=== PATIENT | male | born 1965 | race Caucasian/White ===

== ENCOUNTER → 2016-09-23 | Outpatient (CLI) | payer MEDICARE, BC ==
[2016-09-23 09:59] LABS: Basophils # (A) 0.1 k/uL (0-0.2); Basophils % (A) 1 %; CH 34.4; CHCM 34.3; Eosinophils # (A) 0.2 k/uL (0-0.7); Eosinophils % (A) 3 %; HCT 47.7 % (39.0-53.0); HDW 2.58; HGB 15.8 gm/dL (13.0-17.5); Luc # (Auto) 0.18; Luc % (Auto) 2; Lymphocytes # (A) 3.2 k/uL (1.0-4.8); Lymphocytes % (A) 40 %; MCH 33.2 pg (25.0-35.0); MCHC 33.1 g/dL (31.0-37.0); MCV 100.5 fL (80.0-100.0); Mean Platelet Volume 7.5; Monocytes # (A) 0.4 k/uL (0-1.0); Monocytes % (A) 5 %; Neutrophils # (A) 3.8 k/uL (1.3-7.7); Neutrophils % (A) 48 %; RBC 4.74 m/uL (4.30-5.90); RDW 12.8 % (11.5-15.5); WBC 7.9 k/uL (3.8-10.6); WBC (Perox) 7.93
[2016-09-23 10:00] LABS: AST 44 U/L (17-59); Blood Urea Nitrogen 14 mg/dL (9-20); Chloride 104 mmol/L (98-107); Non-African American GFR(MDRD) >60 (>60 ml/min/1.73 sqM); Total Bilirubin 0.5 mg/dL (0.2-1.3)
[2016-09-23 10:34] LABS: ALT 85 U/L (21-72); Alkaline Phosphatase 76 U/L (38-126); Anion Gap 12 mmol/L; Calcium 9.7 mg/dL (8.4-10.2); Carbon Dioxide 25 mmol/L (22-30); Cholesterol 222 mg/dL (<200); Glucose 109 mg/dL (74-99); Sodium 141 mmol/L (137-145)
[2016-09-24 14:58] LABS: LOG HIV Copies/mL <1.60 (<1.60)
== END | disposition home or self-care (01) ==
LOC: LABWHC1 09:15
PROVIDERS: ATTEND Internal Medicine Infectious Disease
DX: B20 Human immunodeficiency virus [HIV] disease (principal)
CPT/HCPCS: 36415; 80053; 82465; 85025; 86360; 87536

== ENCOUNTER → 2017-01-01 | Outpatient (CLI) | payer MEDICARE, BC ==
[2017-01-01 07:57] LABS: CH 35.2; CHCM 34.8; HCT 48.3 % (39.0-53.0); HGB 16.8 gm/dL (13.0-17.5); MCH 35.4 pg (25.0-35.0); MCHC 34.8 g/dL (31.0-37.0); MCV 101.5 fL (80.0-100.0); Macrocytosis Slight; Mean Platelet Volume 6.6; RBC 4.75 m/uL (4.30-5.90); RDW 12.6 % (11.5-15.5); WBC 8.6 k/uL (3.8-10.6)
[2017-01-01 08:08] LABS: ALT 101 U/L (21-72); AST 65 U/L (17-59); Alkaline Phosphatase 63 U/L (38-126); Anion Gap 10 mmol/L; Blood Urea Nitrogen 19 mg/dL (9-20); Calcium 9.1 mg/dL (8.4-10.2); Carbon Dioxide 25 mmol/L (22-30); Chloride 107 mmol/L (98-107); Cholesterol 245 mg/dL (<200); Glucose 114 mg/dL (74-99); HDL Cholesterol 36 mg/dL (40-60); Non-African American GFR(MDRD) >60 (>60 ml/min/1.73 sqM); Potassium 5.3 mmol/L (3.5-5.1); Sodium 142 mmol/L (137-145); Total Bilirubin 0.5 mg/dL (0.2-1.3); Total Protein 8.5 g/dL (6.3-8.2); Triglycerides 311 mg/dL (<150)
[2017-01-05 07:53] LABS: LOG HIV Copies/mL <1.60 (<1.60)
== END | disposition home or self-care (01) ==
LOC: LABWHC1 07:38
PROVIDERS: ATTEND Internal Medicine Infectious Disease
DX: B20 Human immunodeficiency virus [HIV] disease (principal)
CPT/HCPCS: 36415; 80053; 80061; 85027; 86360; 87536

== ENCOUNTER → 2017-04-09 | Outpatient (CLI) | payer BC, MEDICARE ==
[2017-04-09 07:36] LABS: Basophils # (A) 0.1 k/uL (0-0.2); Basophils % (A) 1 %; CH 35.4; CHCM 34.2; Eosinophils # (A) 0.4 k/uL (0-0.7); Eosinophils % (A) 5 %; HDW 2.47; HGB 15.8 gm/dL (13.0-17.5); Luc # (Auto) 0.22; Luc % (Auto) 3; Lymphocytes # (A) 3.7 k/uL (1.0-4.8); Lymphocytes % (A) 44 %; MCH 34.2 pg (25.0-35.0); MCHC 32.9 g/dL (31.0-37.0); Macrocytosis Slight; Mean Platelet Volume 7.4; Monocytes # (A) 0.4 k/uL (0-1.0); Monocytes % (A) 5 %; Neutrophils # (A) 3.5 k/uL (1.3-7.7); Neutrophils % (A) 42 %; RBC 4.61 m/uL (4.30-5.90); RDW 13.6 % (11.5-15.5); WBC 8.4 k/uL (3.8-10.6); WBC (Perox) 8.16
[2017-04-09 07:54] LABS: ALT 73 U/L (21-72); AST 36 U/L (17-59); Alkaline Phosphatase 70 U/L (38-126); Anion Gap 10 mmol/L; Blood Urea Nitrogen 21 mg/dL (9-20); Calcium 9.1 mg/dL (8.4-10.2); Carbon Dioxide 25 mmol/L (22-30); Chloride 107 mmol/L (98-107); Glucose 117 mg/dL (74-99); Non-African American GFR(MDRD) >60 (>60 ml/min/1.73 sqM); Potassium 4.7 mmol/L (3.5-5.1); Sodium 142 mmol/L (137-145); Total Bilirubin 0.5 mg/dL (0.2-1.3); Total Protein 7.7 g/dL (6.3-8.2)
[2017-04-12 14:38] LABS: LOG HIV Copies/mL <1.60 (<1.60)
== END | disposition home or self-care (01) ==
LOC: LABWHC1 07:13
PROVIDERS: ATTEND Internal Medicine Infectious Disease
DX: B20 Human immunodeficiency virus [HIV] disease (principal)
CPT/HCPCS: 36415; 80053; 85025; 86360; 87536

== ENCOUNTER → 2017-04-14 | Outpatient (CLI) | payer MEDICARE | END | disposition home or self-care (01) | LOC: LABWHC1 11:21 | PROVIDERS: ATTEND Internal Medicine Infectious Disease | DX: B20 Human immunodeficiency virus [HIV] disease (principal) | CPT/HCPCS: 36415; 86360 ==

== ENCOUNTER → 2017-11-01 | Outpatient (CLI) | payer MEDICARE ==
[2017-11-01 07:47] LABS: Basophils # (A) 0.1 k/uL (0-0.2); Basophils % (A) 1 %; Eosinophils # (A) 0.4 k/uL (0-0.7); Eosinophils % (A) 5 %; HCT 44.9 % (39.0-53.0); HGB 15.2 gm/dL (13.0-17.5); Lymphocytes # (A) 3.5 k/uL (1.0-4.8); Lymphocytes % (A) 43 %; MCH 34.1 pg (25.0-35.0); MCHC 33.8 g/dL (31.0-37.0); MCV 100.9 fL (80.0-100.0); Mean Platelet Volume 7.6; Monocytes # (A) 0.5 k/uL (0-1.0); Monocytes % (A) 6 %; Neutrophils # (A) 3.7 k/uL (1.3-7.7); Neutrophils % (A) 44 %; Platelet Count 264 k/uL (150-450); RBC 4.45 m/uL (4.30-5.90); RDW 12.5 % (11.5-15.5); WBC 8.3 k/uL (3.8-10.6)
[2017-11-01 08:16] LABS: ALT 74 U/L (21-72); AST 44 U/L (17-59); Albumin 4.8 g/dL (3.5-5.0); Alkaline Phosphatase 87 U/L (38-126); Anion Gap 15 mmol/L; Blood Urea Nitrogen 16 mg/dL (9-20); Calcium 10.1 mg/dL (8.4-10.2); Carbon Dioxide 27 mmol/L (22-30); Chloride 101 mmol/L (98-107); Cholesterol 229 mg/dL (<200); Glucose 114 mg/dL (74-99); HDL Cholesterol 35 mg/dL (40-60); LDL Cholesterol,Calculated 153 mg/dL (0-99); Potassium 5.1 mmol/L (3.5-5.1); Sodium 143 mmol/L (137-145); Total Bilirubin 0.6 mg/dL (0.2-1.3); Total Protein 8.3 g/dL (6.3-8.2); Triglycerides 205 mg/dL (<150)
[2017-11-01 18:12] LABS: HIV AB P24 REACTIVE (Non-Reactive); HIV P24 AG Non-Reactive (Non-Reactive)
[2017-11-02 12:47] LABS: T4/T8 Ratio (CD4:CD8) 0.3 (1.0-3.7)
== END | disposition home or self-care (01) ==
LOC: LABWHC1 06:33
PROVIDERS: ATTEND Internal Medicine Infectious Disease
DX: B20 Human immunodeficiency virus [HIV] disease (principal)
CPT/HCPCS: 36415; 80053; 80061; 85025; 86360; 87389; 87390

== ENCOUNTER → 2017-11-08 | Outpatient (CLI) | payer MEDICARE ==
[2017-11-09 13:12] LABS: HIV-1 RNA Not detected (Not detected); HIV-1 RNA, Quant <40 Copies/mL (<40)
== END | disposition home or self-care (01) ==
LOC: LABWHC1 06:44
PROVIDERS: ATTEND Internal Medicine Infectious Disease
DX: B20 Human immunodeficiency virus [HIV] disease (principal)
CPT/HCPCS: 36415; 87536

== ENCOUNTER → 2018-05-25 | Outpatient (CLI) | payer MEDICARE ==
[2018-05-25 07:51] LABS: ALT 62 U/L (21-72); AST 43 U/L (17-59); Albumin 4.4 g/dL (3.5-5.0); Alkaline Phosphatase 72 U/L (38-126); Anion Gap 7 mmol/L; Blood Urea Nitrogen 12 mg/dL (9-20); Calcium 9.6 mg/dL (8.4-10.2); Carbon Dioxide 28 mmol/L (22-30); Chloride 107 mmol/L (98-107); Glucose 115 mg/dL (74-99); Sodium 142 mmol/L (137-145); Total Bilirubin 0.5 mg/dL (0.2-1.3); Total Protein 7.9 g/dL (6.3-8.2)
[2018-05-25 15:30] LABS: Hemoglobin A1C 5.8 % (4.0-6.0)
== END ==
LOC: LABWHC1 06:37
PROVIDERS: ATTEND Internal Medicine Infectious Disease
DX: R73.9 Hyperglycemia, unspecified (principal)
CPT/HCPCS: 36415; 80053; 83036

== ENCOUNTER 2018-08-12 14:11 | Emergency (ER) | payer MEDICARE ==
--- NOTE | 2018-08-12 15:06 | ED ---
General Adult HPI - General Chief complaint: Recheck/Abnormal Lab/Rx Stated complaint: Dr pizarro, abn potassium levels Source: patient Mode of arrival: ambulatory Limitations: no limitations - History of Present Illness Initial comments: Dictation was produced using [employer] dictation software. please excuse any grammatical, word or spelling errors. Chief Complaint: 52-year-old male presents with abnormal lab. History of Present Illness: 52-year-old male past medical history of diabetes mellitus, HIV and dyslipidemia presents with abnormal outpatient lab. Patient had routine blood work performed today. His potassium level was finally 6.3. Patient is on atorvastatin. Denies any trauma. Denies any history of chronic kidney disease. Patient is no complaints at this time. She denies any by mouth supplementation or large volume of the high potassium foods. The ROS documented in this emergency department record has been reviewed and confirmed by me. Those systems with pertinent positive or negative responses have been documented in the HPI. All other systems are other negative and/or noncontributory. - Related Data Home Medications Medication Instructions Recorded Confirmed ALPRAZolam [Xanax] 0.5 mg PO BID 08/12/18 08/12/18 Atorvastatin [Lipitor] 40 mg PO DAILY 08/12/18 08/12/18 Bictegrav/Emtricit/Tenofov Ala 1 tab PO HS 08/12/18 08/12/18 [Biktarvy 50-200-25 mg Tablet] Dicyclomine [Bentyl] 20 mg PO BID 08/12/18 08/12/18 Gemfibrozil [Lopid] 600 mg PO BID 08/12/18 08/12/18 metFORMIN HCL 500 mg PO BID 08/12/18 08/12/18 Allergies Allergy/AdvReac Type Severity Reaction Status Date / Time peanut Allergy Nausea & Verified 08/12/18 15:19 Vomiting Review of Systems ROS Statement: Those systems with pertinent positive or pertinent negative responses have been documented in the HPI. ROS Other: All systems not noted in ROS Statement are negative. Past Medical History Past Medical History: Diabetes Mellitus Additional Past Medical History / Comment(s): HIV+, heat sensitivity History of Any Multi-Drug Resistant Organisms: None Reported Past Surgical History: No Surgical Hx Reported Past Psychological History: Depression Smoking Status: Current every day smoker Past Alcohol Use History: None Reported Past Drug Use History: None Reported General Exam - General Exam Comments Initial Comments: PHYSICAL EXAM: General Impression: Alert and oriented x3, not in acute distress HEENT: Normocephalic atraumatic, extra-ocular movements intact, pupils equal and reactive to light bilaterally, mucous membranes moist. Cardiovascular: Heart regular rate and rhythm, S1&S2 audible, no murmurs, rubs or gallops Chest: Lungs clear to auscultation bilaterally, no rhonchi, no wheeze, no rales Abdomen: Bowel sounds present, abdomen soft, non-tender, non-distended, no organomegaly Musculoskeletal: Pulses present and equal in all extremities, no peripheral edema Motor: Power 5/5 bilaterally, no focal deficits noted Neurological: CN II-XII grossly intact, no focal motor or sensory deficits noted Skin: Intact with no visualized rashes Psych: Normal affect and mood Limitations: no limitations Course Vital Signs 08/12/18 14:33 Temperature 98 F Pulse Rate 105 H Respiratory 18 Rate Blood Pressure 116/78 O2 Sat by Pulse 95 Oximetry Medical Decision Making - Medical Decision Making ED course: 79-year-old male presents with abnormal outpatient lab. Patient has no complaints. Labs shows that he had labs drawn discussed monitoring with potassium of 6.3. Renal markers are within normal limits. Vital signs upon arrival are within acceptable limits. Patient is well-appearing and physical examination.Repeat potassium level drawn with level of 4.3 with creatinine kinase of 95. Patient stable for discharge. - Lab Data Result diagrams: 08/12/18 15:24 Lab Results 08/12/18 Range/Units 15:24 Potassium 4.3 (3.5-5.1) mmol/L Creatine Kinase 95 (55-170) U/L Disposition Clinical Impression: Wellness examination Disposition: HOME SELF-CARE Condition: Good Is patient prescribed a controlled substance at d/c from ED?: No Referrals: Edouard London MD [Primary Care Provider] - 1-2 days Time of Disposition: 16:02
[2018-08-12 15:44] LABS: Potassium 4.3 mmol/L (3.5-5.1)
[2018-08-12 16:09] VITALS: BP 138/70; PULSE 78; RESP 16; TEMP 97.8
== END 2018-08-12 16:07 | disposition home or self-care (01) ==
LOC: EC 14:11
DX: Z00.00 Encounter for general adult medical examination without abnormal findings (principal); E11.9 Type 2 diabetes mellitus without complications; E78.5 Hyperlipidemia, unspecified; F32.9 Major depressive disorder, single episode, unspecified; F17.200 Nicotine dependence, unspecified, uncomplicated; Z21 Asymptomatic human immunodeficiency virus [HIV] infection status; Z79.84 Long term (current) use of oral hypoglycemic drugs; Z79.899 Other long term (current) drug therapy; Z91.010 Allergy to peanuts
CPT/HCPCS: 36415; 82550; 84132; 93005; 99283

== ENCOUNTER → 2018-08-12 | Outpatient (CLI) | payer MEDICARE ==
[2018-08-12 07:27] LABS: Basophils # (A) 0.1 k/uL (0-0.2); Basophils % (A) 1 %; Eosinophils # (A) 0.2 k/uL (0-0.7); Eosinophils % (A) 3 %; HGB 16.1 gm/dL (13.0-17.5); Lymphocytes # (A) 3.7 k/uL (1.0-4.8); Lymphocytes % (A) 42 %; MCH 34.1 pg (25.0-35.0); MCHC 33.6 g/dL (31.0-37.0); MCV 101.6 fL (80.0-100.0); Mean Platelet Volume 6.7; Monocytes # (A) 0.4 k/uL (0-1.0); Monocytes % (A) 5 %; Neutrophils % (A) 47 %; Platelet Count 262 k/uL (150-450); RBC 4.72 m/uL (4.30-5.90); RDW 12.6 % (11.5-15.5); WBC 8.7 k/uL (3.8-10.6)
[2018-08-12 13:15] LABS: Albumin 4.9 g/dL (3.80-4.90); Albumin/Globulin Ratio 2.04 (1.20-2.10); Anion Gap 8.1 mmol/L (4.00-12.00); Calcium 10.1 mg/dL (8.7-10.3); Carbon Dioxide 25.9 mmol/L (21.6-31.8); Globulin 2.4 g/dL (2.1-3.7); Total Bilirubin 0.5 mg/dL (0.3-1.2); Total Protein 7.3 g/dL (6.2-8.2)
[2018-08-12 13:46] LABS: Potassium 6.3 mmol/L (3.5-5.5)
[2018-08-13 14:25] LABS: T4/T8 Ratio (CD4:CD8) 0.3 (1.0-3.7)
[2018-08-15 14:03] LABS: HIV-1 RNA DETECTED (Not detected); HIV-1 RNA, Quant <40 Copies/mL (<40)
== END | disposition home or self-care (01) ==
LOC: LABWHC1 06:45
PROVIDERS: ATTEND Internal Medicine Infectious Disease
DX: B20 Human immunodeficiency virus [HIV] disease (principal); R73.9 Hyperglycemia, unspecified
CPT/HCPCS: 36415; 80053; 85025; 86360; 87536

== ENCOUNTER → 2018-11-01 | Outpatient (CLI) | payer MEDICARE ==
[2018-11-01 08:03] LABS: Basophils # (A) 0.1 k/uL (0-0.2); Basophils % (A) 2 %; Eosinophils # (A) 0.3 k/uL (0-0.7); Eosinophils % (A) 4 %; HCT 46.9 % (39.0-53.0); HGB 15.5 gm/dL (13.0-17.5); Lymphocytes % (A) 43 %; MCH 34.2 pg (25.0-35.0); MCV 103.4 fL (80.0-100.0); Macrocytosis Slight; Mean Platelet Volume 7.1; Monocytes # (A) 0.3 k/uL (0-1.0); Monocytes % (A) 5 %; Neutrophils % (A) 44 %; Platelet Count 248 k/uL (150-450); RBC 4.53 m/uL (4.30-5.90); RDW 12.7 % (11.5-15.5); WBC 6.9 k/uL (3.8-10.6)
[2018-11-01 12:09] LABS: Albumin 4.7 g/dL (3.80-4.90); Albumin/Globulin Ratio 1.88 (1.60-3.17); Anion Gap 6.8 mmol/L (4.00-12.00); Calcium 9.7 mg/dL (8.7-10.3); Carbon Dioxide 27.2 mmol/L (21.6-31.8); Globulin 2.5 g/dL (1.6-3.3); LDL Cholesterol,Calculated 125.8 mg/dL (0.0-131.0); Potassium 5.6 mmol/L (3.5-5.5); Total Bilirubin 0.4 mg/dL (0.3-1.2); Total Protein 7.2 g/dL (6.2-8.2); VLDL Calculation 26.2 mg/dL (5.00-40.00)
[2018-11-02 12:55] LABS: T4/T8 Ratio (CD4:CD8) 0.4 (1.0-3.7)
[2018-11-03 12:53] LABS: HIV-1 RNA Not detected (Not detected); HIV-1 RNA, Quant <40 Copies/mL (<40)
== END | disposition home or self-care (01) ==
LOC: LABWHC1 06:42
PROVIDERS: ATTEND Internal Medicine Infectious Disease
DX: B20 Human immunodeficiency virus [HIV] disease (principal); E78.00 Pure hypercholesterolemia, unspecified
CPT/HCPCS: 36415; 80053; 80061; 83036; 85025; 86360; 87536

== ENCOUNTER → 2019-03-14 | Outpatient (CLI) | payer MEDICARE ==
[2019-03-14 07:09] LABS: Basophils # (A) 0.1 k/uL (0-0.2); Basophils % (A) 1 %; Eosinophils # (A) 0.3 k/uL (0-0.7); Eosinophils % (A) 4 %; HCT 46.9 % (39.0-53.0); HGB 15.5 gm/dL (13.0-17.5); Lymphocytes # (A) 3.6 k/uL (1.0-4.8); Lymphocytes % (A) 41 %; MCH 33.1 pg (25.0-35.0); MCHC 33.1 g/dL (31.0-37.0); MCV 99.8 fL (80.0-100.0); Mean Platelet Volume 7.3; Monocytes # (A) 0.4 k/uL (0-1.0); Monocytes % (A) 5 %; Neutrophils % (A) 46 %; Platelet Count 244 k/uL (150-450); WBC 8.7 k/uL (3.8-10.6)
[2019-03-14 12:31] LABS: African American GFR (CKD) 87.7 (60.0-200.0); Albumin 4.6 g/dL (3.80-4.90); Albumin/Globulin Ratio 1.92 (1.60-3.17); BUN/Creat Ratio 13.64 Ratio (12.00-20.00); Calcium 9.5 mg/dL (8.7-10.3); Globulin 2.4 g/dL (1.6-3.3); Potassium 4.7 mmol/L (3.5-5.5); Total Bilirubin 0.5 mg/dL (0.3-1.2)
[2019-03-15 12:13] LABS: T4/T8 Ratio (CD4:CD8) 0.4 (1.0-3.7)
== END | disposition home or self-care (01) ==
LOC: LABWHC1 06:36
PROVIDERS: ATTEND Internal Medicine Infectious Disease
DX: B20 Human immunodeficiency virus [HIV] disease (principal)
CPT/HCPCS: 36415; 80053; 85025; 86360; 87536

== ENCOUNTER → 2019-07-21 | Outpatient (CLI) | payer MEDICARE ==
[2019-07-21 07:02] LABS: Basophils # (A) 0.1 k/uL (0-0.2); Basophils % (A) 1 %; Eosinophils # (A) 0.3 k/uL (0-0.7); Eosinophils % (A) 3 %; HCT 42.6 % (39.0-53.0); HGB 14.5 gm/dL (13.0-17.5); Lymphocytes # (A) 4.1 k/uL (1.0-4.8); Lymphocytes % (A) 40 %; MCHC 33.9 g/dL (31.0-37.0); MCV 103.1 fL (80.0-100.0); Macrocytosis Slight; Mean Platelet Volume 6.1; Monocytes # (A) 0.6 k/uL (0-1.0); Monocytes % (A) 6 %; Neutrophils # (A) 4.8 k/uL (1.3-7.7); Neutrophils % (A) 48 %; Platelet Count 298 k/uL (150-450); RBC 4.13 m/uL (4.30-5.90); RDW 12.3 % (11.5-15.5); WBC 10.1 k/uL (3.8-10.6)
[2019-07-21 12:14] LABS: Albumin 4.9 g/dL (3.80-4.90); Albumin/Globulin Ratio 2.04 (1.60-3.17); Anion Gap 8.6 mmol/L (4.00-12.00); BUN/Creat Ratio 16.67 Ratio (12.00-20.00); Calcium 9.8 mg/dL (8.7-10.3); Carbon Dioxide 24.4 mmol/L (21.6-31.8); Globulin 2.4 g/dL (1.6-3.3); Non-African American GFR(CKD) 68.1 (60.0-200.0); Potassium 4.7 mmol/L (3.5-5.5); Total Bilirubin 0.4 mg/dL (0.2-1.2); Total Protein 7.3 g/dL (6.2-8.2)
[2019-07-24 12:24] LABS: T4/T8 Ratio (CD4:CD8) 0.4 (1.0-3.7)
[2019-07-24 14:52] LABS: HIV-1 RNA Not detected (Not detected); HIV-1 RNA, Quant <40 Copies/mL (<40)
== END ==
LOC: LABWHC1 06:31
PROVIDERS: ATTEND Internal Medicine Infectious Disease
DX: B20 Human immunodeficiency virus [HIV] disease (principal)
CPT/HCPCS: 36415; 80053; 85025; 86360; 87536

== ENCOUNTER → 2020-08-28 | Outpatient (CLI) | payer MEDICARE ==
[2020-08-28 11:02] LABS: Basophils # (A) 0.1 k/uL (0-0.2); Basophils % (A) 1 %; Eosinophils # (A) 0.3 k/uL (0-0.7); Eosinophils % (A) 3 %; HCT 44.9 % (39.0-53.0); HGB 15.3 gm/dL (13.0-17.5); Lymphocytes # (A) 3.4 k/uL (1.0-4.8); Lymphocytes % (A) 38 %; MCH 34.7 pg (25.0-35.0); MCV 102.1 fL (80.0-100.0); Mean Platelet Volume 7.1; Monocytes # (A) 0.4 k/uL (0-1.0); Monocytes % (A) 4 %; Neutrophils # (A) 4.8 k/uL (1.3-7.7); Neutrophils % (A) 52 %; Platelet Count 233 k/uL (150-450); RBC 4.39 m/uL (4.30-5.90); RDW 12.1 % (11.5-15.5); WBC 9.1 k/uL (3.8-10.6)
[2020-08-29 02:38] LABS: African American GFR (CKD) 87.1 (60.0-200.0); Anion Gap 13.7 mmol/L (4.00-12.00); BUN/Creat Ratio 15.45 Ratio (12.00-20.00); Calcium 9.9 mg/dL (8.7-10.3); Carbon Dioxide 21.3 mmol/L (21.6-31.8); Globulin 2.5 g/dL (1.6-3.3); Non-African American GFR(CKD) 75.2 (60.0-200.0); Potassium 5.5 mmol/L (3.5-5.5); Total Bilirubin 0.3 mg/dL (0.3-1.2); Total Protein 7.5 g/dL (6.2-8.2)
[2020-08-29 13:03] LABS: HIV-1 RNA Not detected (Not detected); HIV-1 RNA, Quant <40 Copies/mL (<40)
== END | disposition home or self-care (01) ==
LOC: LABWHC1 09:55
PROVIDERS: ATTEND Internal Medicine Infectious Disease
DX: B20 Human immunodeficiency virus [HIV] disease (principal)
CPT/HCPCS: 36415; 80053; 85025; 86360; 87536

== ENCOUNTER → 2021-03-11 | Outpatient (CLI) | payer MEDICARE ==
[2021-03-11 13:03] LABS: Basophils # (A) 0.11 X 10*3/uL (0.00-0.10); Basophils % (A) 1.1 %; Eosinophils # (A) 0.23 X 10*3/uL (0.04-0.35); Eosinophils % (A) 2.4 %; HCT 43.5 % (39.6-50.0); HGB 14.8 g/dL (13.0-17.0); Lymphocytes # (A) 3.49 X 10*3/uL (0.90-5.00); Lymphocytes % (A) 35.8 %; MCH 33.6 pg (27.0-32.0); MCV 98.6 fL (80.0-97.0); Mean Platelet Volume 11.1 fL (9.5-12.2); Monocytes # (A) 0.62 X 10*3/uL (0.20-1.00); Monocytes % (A) 6.4 %; Neutrophils # (A) 5.24 X 10*3/uL (1.80-7.70); Neutrophils % (A) 53.8 %; Platelet Count 277 X 10*3/uL (140-440); RBC 4.41 X 10*6/uL (4.40-5.60); RDW 11.7 % (11.5-14.5); WBC 9.74 X 10*3/uL (4.50-10.00)
[2021-03-11 15:00] LABS: African American GFR (CKD) 97.1 (60.0-200.0); Albumin 4.6 g/dL (3.80-4.90); Albumin/Globulin Ratio 1.59 (1.60-3.17); Calcium 9.4 mg/dL (8.7-10.3); Globulin 2.9 g/dL (1.6-3.3); Non-African American GFR(CKD) 83.8 (60.0-200.0); Potassium 4.7 mmol/L (3.5-5.5); Total Bilirubin 0.3 mg/dL (0.3-1.2); Total Protein 7.5 g/dL (6.2-8.2)
[2021-03-12 11:24] LABS: T4/T8 Ratio (CD4:CD8) 0.4 (1.0-3.7)
[2021-03-12 14:10] LABS: HIV-1 RNA DETECTED (Not detected); HIV-1 RNA, Quant <40 Copies/mL (<40)
== END | disposition home or self-care (01) ==
LOC: LABWHC1 07:21
PROVIDERS: ATTEND Internal Medicine Infectious Disease
DX: B20 Human immunodeficiency virus [HIV] disease (principal)
CPT/HCPCS: 36415; 80053; 85025; 86360; 87536

== ENCOUNTER → 2021-09-05 | Outpatient (CLI) | payer MEDICARE ==
[2021-09-05 11:44] LABS: Basophils # (A) 0.09 X 10*3/uL (0.00-0.10); Basophils % (A) 1.5 %; Eosinophils # (A) 0.22 X 10*3/uL (0.04-0.35); Eosinophils % (A) 3.6 %; HCT 41.7 % (39.6-50.0); Lymphocytes # (A) 2.45 X 10*3/uL (0.90-5.00); Lymphocytes % (A) 40.2 %; MCH 33.3 pg (27.0-32.0); MCHC 33.6 g/dL (32.0-37.0); MCV 99.3 fL (80.0-97.0); Mean Platelet Volume 10.5 fL (9.5-12.2); Monocytes # (A) 0.81 X 10*3/uL (0.20-1.00); Monocytes % (A) 13.3 %; Neutrophils # (A) 2.49 X 10*3/uL (1.80-7.70); Neutrophils % (A) 40.9 %; Platelet Count 217 X 10*3/uL (140-440); RDW 12.7 % (11.5-14.5); WBC 6.09 X 10*3/uL (4.50-10.00)
[2021-09-05 15:26] LABS: ALT 31 U/L (10-49); AST 25 U/L (14-35); African American GFR (CKD) 111.7 (60.0-200.0); Albumin 4.2 g/dL (3.8-4.9); Alkaline Phosphatase 81 U/L (41-126); BUN/Creat Ratio 15.58 Ratio (12.00-20.00); Blood Urea Nitrogen 13.6 mg/dL (9.0-27.0); Calcium 9.3 mg/dL (8.7-10.3); Carbon Dioxide 24.9 mmol/L (20.0-27.5); Chloride 101 mmol/L (96-109); Globulin 2.8 g/dL (1.6-3.3); Glucose 90 mg/dL (70-110); Non-African American GFR(CKD) 96.3 (60.0-200.0); Potassium 4.8 mmol/L (3.5-5.5); Sodium 138 mmol/L (135-145); Total Bilirubin <0.20 mg/dL (0.30-1.20)
[2021-09-06 11:06] LABS: T4/T8 Ratio (CD4:CD8) 0.5 (1.0-3.7)
[2021-09-08 13:28] LABS: HIV-1 RNA Not detected (Not detected); HIV-1 RNA, Quant <40 Copies/mL (<40)
== END | disposition home or self-care (01) ==
LOC: LABWHC1 07:08
PROVIDERS: ATTEND Internal Medicine Infectious Disease
DX: B20 Human immunodeficiency virus [HIV] disease (principal)
CPT/HCPCS: 36415; 80053; 85025; 86360; 87536

== ENCOUNTER → 2021-11-01 | Outpatient (CLI) | payer MEDICARE ==
--- NOTE | 2021-11-01 08:13 | CTL ---
EXAMINATION TYPE: CT Low Dose Lung DATE OF EXAM ORDERED: 11/01/2021 COMPARISON: None HISTORY: . Low Dose CT Lung Screening CT DLP: 83.[address] CTDI: 2.4 mGy IV CONTRAST USED: None. SCREENING VISIT: First visit COMPARISON: None. TECHNIQUE: Low dose computed tomography scan was performed through the chest at 1 millimeter thick se ctions and reconstructed images in the coronal plane at [address] DIAGNOSTIC QUALITY: Satisfactory FINDINGS: LUNG NODULES: Not presentLeft lung: no nodules identified.Right lung: no nodules identified. LUNGS: COPD: Severity: None Fibrosis: Severity:None Lymph nodes: None Other findings: None RIGHT PLEURAL SPACE: Effusion: None Calcification: None Thickening: None Pneumothorax: None LEFT PLEURAL SPACE: Effusion: None Calcification: None Thickening: None Pneumothorax: None HEART: Heart Size: Mildly enlarged Coronary calcification: Mild Pericardial effusion: None OTHER FINDINGS: Upper abdomen: No significant abnormality Bony thorax: Degenerative changes Supraclavicular region: No significant abnormalityOther: No significant abnormalityI IMPRESSION: Significant abnormality seen. FOLLOW UP CT CHEST RECOMMENDATION: Follow-up screening in one year CT LUNG RAD: LUNG RAD CATEGORY 1 negative
== END | disposition home or self-care (01) ==
LOC: RADCTMAIN 07:37
PROVIDERS: ATTEND Family Medicine
DX: Z12.2 Encounter for screening for malignant neoplasm of respiratory organs (principal); R91.8 Other nonspecific abnormal finding of lung field; Z87.891 Personal history of nicotine dependence
CPT/HCPCS: 71271

== ENCOUNTER 2021-12-27 00:36 | Emergency (ER) | payer MEDICARE ==
[2021-12-27 00:45] VITALS: BP 138/84; PULSE 85; RESP 16; TEMP 98
[2021-12-27] MEDS ORDERED: KETOROLAC 15 MG/ML 1 ML VIAL IM STA (01:33)
[2021-12-27] MEDS ORDERED: ACETAMINOPHEN TAB 500 MG TAB PO STA (01:33)
[2021-12-27] MEDS ORDERED: CLINDAMYCIN 150 MG CAP PO STA (01:33)
--- NOTE | 2021-12-27 01:39 | ED ---
ENT HPI - General Chief complaint: Dental/Oral Stated complaint: Jaw pain Time Seen by Provider: 12/27/21 01:23 Source: patient, RN notes reviewed Mode of arrival: ambulatory Limitations: no limitations - History of Present Illness Initial comments: No headache, no fever or chills, no changes in vision or hearing, no sore throat or difficulty with speech, no neck pain, no chest pain or shortness of breath, no abdominal pain, no nausea or vomiting, no changes in urination or bowel movements, no numbness or tingling, no extremity pain, no skin rashes or lesions. MD complaint: tooth pain - Related Data Home Medications Medication Instructions Recorded Confirmed ALPRAZolam [Xanax] 0.5 mg PO BID 08/12/18 08/12/18 Atorvastatin [Lipitor] 40 mg PO DAILY 08/12/18 08/12/18 Bictegrav/Emtricit/Tenofov Ala 1 tab PO HS 08/12/18 08/12/18 [Biktarvy 50-200-25 mg Tablet] Dicyclomine [Bentyl] 20 mg PO BID 08/12/18 08/12/18 gemfibroziL [Lopid] 600 mg PO BID 08/12/18 08/12/18 metFORMIN HCL 500 mg PO BID 08/12/18 08/12/18 Previous Rx's Medication Instructions Recorded Acetaminophen [Tylenol] 500 mg PO Q4-6H PRN #24 tab 12/27/21 Ibuprofen [Motrin] 600 mg PO Q8HR PRN #30 tab 12/27/21 clindamycin HCL [Cleocin] 300 mg PO Q6H #40 cap 12/27/21 Allergies Allergy/AdvReac Type Severity Reaction Status Date / Time peanut Allergy Nausea & Verified 12/27/21 00:45 Vomiting Review of Systems ROS Statement: Those systems with pertinent positive or pertinent negative responses have been documented in the HPI. ROS Other: All systems not noted in ROS Statement are negative. Past Medical History Past Medical History: Diabetes Mellitus Additional Past Medical History / Comment(s): HIV+, heat sensitivity History of Any Multi-Drug Resistant Organisms: None Reported Past Surgical History: No Surgical Hx Reported Past Psychological History: No Psychological Hx Reported Smoking Status: Current every day smoker Past Alcohol Use History: None Reported Past Drug Use History: None Reported General Exam - General Exam Comments Initial Comments: Healthy-appearing 56-year-old male in no significant distress. Does not appear to be ill or toxic. Limitations: no limitations General appearance: alert, in no apparent distress Head exam: Present: atraumatic, normocephalic, normal inspection Eye exam: Present: normal appearance, PERRL, EOMI. Absent: scleral icterus, conjunctival injection, periorbital swelling ENT exam: Present: normal exam, normal oropharynx, mucous membranes moist, TM's normal bilaterally, normal external ear exam. Absent: mucous membranes dry Expanded Mouth exam: Present: normal external inspection, tongue normal. Absent: drooling, trismus, muffled voice, tongue elevation, laceration Teeth exam: Present: dental caries, dental tenderness # (29), gingival enlargement (Patient has a small area of edema adjacent to tooth #29 consistent with a small abscess). Absent: normal inspection Throat exam: normal inspection. negative: tonsillar erythema, tonsillomegaly, tonsillar exudate, R peritonsillar mass, L peritonsillar mass Neck exam: Present: normal inspection. Absent: tenderness, meningismus, lymphadenopathy Respiratory exam: Present: normal lung sounds bilaterally. Absent: respiratory distress, wheezes, rales, rhonchi, stridor Cardiovascular Exam: Present: regular rate, normal rhythm, normal heart sounds. Absent: systolic murmur, diastolic murmur, rubs, gallop, clicks GI/Abdominal exam: Present: soft, normal bowel sounds. Absent: distended, tenderness, guarding, rebound, rigid Extremities exam: Present: normal inspection, full ROM, normal capillary refill. Absent: tenderness, pedal edema, joint swelling, calf tenderness Back exam: Present: normal inspection Neurological exam: Present: alert, oriented X3, CN II-XII intact Psychiatric exam: Present: normal affect, normal mood Skin exam: Present: warm, dry, intact, normal color. Absent: rash Course Vital Signs 12/27/21 00:40 Temperature 98 F Pulse Rate 85 Respiratory 16 Rate Blood Pressure 138/84 O2 Sat by Pulse 96 Oximetry Procedures - Smoking Cessation Time Spent Discussing Smoking Cessation w/Patient (Minutes): 3 Patient Acknowledges Need for Cessation: Yes Medical Decision Making - Medical Decision Making We'll treat the patient with clindamycin, anti-inflammatory medication, acetaminophen, follow-up with the dentist. Patient counseled on smoking cessation. Patient was told to return to the ER for any signs or symptoms worsen. Told to return immediately if any other problems arise. All questions answered. Treatment plan discussed. Patient in agreement Every effort has been made to ensure accuracy of this dictation. However, due to the limitations of electronic medical records and dictation devices, errors in charting still occur. Supervising physicians Dr. Krueger Disposition Clinical Impression: Dental abscess, Cigarette smoker Disposition: HOME SELF-CARE Condition: Good Instructions (If sedation given, give patient instructions): Dental Abscess (ED), How to Stop Smoking (ED) Additional Instructions: Follow-up with your regular physician as directed. Return to the ER immediately if any symptoms worsen, new symptoms arise, or any other problems develop. Is patient prescribed a controlled substance at d/c from ED?: No Referrals: Winston Bangura [Primary Care Provider] - 12/31/21 Time of Disposition: 01:38
== END 2021-12-27 01:57 | disposition home or self-care (01) ==
LOC: EC 00:36
DX: K04.7 Periapical abscess without sinus (principal); K02.9 Dental caries, unspecified; F17.210 Nicotine dependence, cigarettes, uncomplicated; E11.9 Type 2 diabetes mellitus without complications; B20 Human immunodeficiency virus [HIV] disease; Z79.84 Long term (current) use of oral hypoglycemic drugs; Z79.899 Other long term (current) drug therapy
CPT/HCPCS: 96372; 99283; J1885

== ENCOUNTER → 2022-03-06 | Outpatient (CLI) | payer MEDICARE ==
[2022-03-06 10:37] LABS: HCT 43.7 % (39.6-50.0); HGB 13.9 g/dL (13.0-17.0); MCH 34.8 pg (27.0-32.0); MCHC 31.8 g/dL (32.0-37.0); MCV 109.3 fL (80.0-97.0); Mean Platelet Volume 10.5 fL (9.5-12.2); NRBC Per 100 WBC 0 /100 WBCS (0.0-0.0); Platelet Count 303 X 10*3/uL (140-440); RDW 11.9 % (11.5-14.5); WBC 11.49 X 10*3/uL (4.50-10.00)
[2022-03-06 10:43] LABS: African American GFR (CKD) 110.9 (60.0-200.0); Anion Gap 9.7 mmol/L (10.00-18.00); BUN/Creat Ratio 15.6 Ratio (12.00-20.00); Blood Urea Nitrogen 13.6 mg/dL (9.0-27.0); Calcium 9.5 mg/dL (8.7-10.3); Carbon Dioxide 27.6 mmol/L (20.0-27.5); Non-African American GFR(CKD) 95.7 (60.0-200.0); Potassium 5.5 mmol/L (3.5-5.5)
[2022-03-06 11:08] LABS: Basophils # (A) 0.14 X 10*3/uL (0.00-0.10); Basophils % (A) 1.2 %; Eosinophils # (A) 0.22 X 10*3/uL (0.04-0.35); Eosinophils % (A) 1.9 %; Immature Grans, Automated 0.6 %; Lymphocytes # (A) 3.35 X 10*3/uL (0.90-5.00); Lymphocytes % (A) 29.2 %; Macrocytosis (M) 2+; Monocytes # (A) 0.79 X 10*3/uL (0.20-1.00); Monocytes % (A) 6.9 %; Neutrophils # (A) 6.92 X 10*3/uL (1.80-7.70); Neutrophils % (A) 60.2 %
[2022-03-07 12:24] LABS: T4/T8 Ratio (CD4:CD8) 0.5 (1.0-3.7)
[2022-03-09 13:43] LABS: HIV-1 RNA Not detected (Not detected); HIV-1 RNA, Quant <40 Copies/mL (<40); LOG HIV Copies/mL <1.60 (<1.60)
== END | disposition home or self-care (01) ==
LOC: LABWHC1 07:02
PROVIDERS: ATTEND Internal Medicine Infectious Disease
DX: B20 Human immunodeficiency virus [HIV] disease (principal)
CPT/HCPCS: 36415; 80048; 85025; 86360; 87536

== ENCOUNTER 2022-07-25 05:30 | Emergency (ER) | payer MEDICARE ==
[2022-07-25 05:34] VITALS: BP 126/85; PULSE 76; RESP 16; TEMP 97.8
--- NOTE | 2022-07-25 05:53 | ED ---
ENT HPI - General Chief complaint: ENT Stated complaint: ear pain Time Seen by Provider: 07/25/22 05:40 Source: patient, RN notes reviewed, old records reviewed Mode of arrival: ambulatory Limitations: no limitations - History of Present Illness Initial comments: This is a 56-year-old male to the emergency department for evaluation. Patient woke up with right-sided ear pain and will, sleep tonight. Patient is a Q-tip in his right ear and noticed extreme amount of blood coming out. Patient became very nervous comes to the emergency department for evaluation, no real significant pain but is having still bloody slight bloody drainage. MD complaint: trauma/injury (Bleeding from right ear), other (Right ear pain) -: hour(s) Location: R ear Severity: mild Severity scale (1-10): 3 Consistency: constant Improves with: none Worsens with: none Associated Symptoms: discharge from ear - Related Data Home Medications Medication Instructions Recorded Confirmed ALPRAZolam [Xanax] 0.5 mg PO BID 08/12/18 08/12/18 Atorvastatin [Lipitor] 40 mg PO DAILY 08/12/18 08/12/18 Bictegrav/Emtricit/Tenofov Ala 1 tab PO HS 08/12/18 08/12/18 [Biktarvy 50-200-25 mg Tablet] Dicyclomine [Bentyl] 20 mg PO BID 08/12/18 08/12/18 gemfibroziL [Lopid] 600 mg PO BID 08/12/18 08/12/18 metFORMIN HCL 500 mg PO BID 08/12/18 08/12/18 Previous Rx's Medication Instructions Recorded Acetaminophen [Tylenol] 500 mg PO Q4-6H PRN #24 tab 12/27/21 Ibuprofen [Motrin] 600 mg PO Q8HR PRN #30 tab 12/27/21 clindamycin HCL [Cleocin] 300 mg PO Q6H #40 cap 12/27/21 Allergies Allergy/AdvReac Type Severity Reaction Status Date / Time peanut Allergy Nausea & Verified 07/25/22 05:32 Vomiting Review of Systems ROS Statement: Those systems with pertinent positive or pertinent negative responses have been documented in the HPI. ROS Other: All systems not noted in ROS Statement are negative. Past Medical History Past Medical History: Diabetes Mellitus Additional Past Medical History / Comment(s): HIV+, heat sensitivity History of Any Multi-Drug Resistant Organisms: None Reported Past Surgical History: No Surgical Hx Reported Past Psychological History: No Psychological Hx Reported Smoking Status: Current every day smoker Past Alcohol Use History: None Reported Past Drug Use History: None Reported General Exam Limitations: no limitations General appearance: alert, in no apparent distress Head exam: Present: atraumatic, normocephalic, normal inspection Eye exam: Present: normal appearance, PERRL, EOMI. Absent: scleral icterus, conjunctival injection, periorbital swelling ENT exam: Present: normal exam, mucous membranes moist. Absent: TM's normal bilaterally (Right TM is ruptured, minimal bleeding) Neck exam: Present: normal inspection. Absent: tenderness, meningismus, lymphadenopathy Respiratory exam: Present: normal lung sounds bilaterally. Absent: respiratory distress, wheezes, rales, rhonchi, stridor Cardiovascular Exam: Present: regular rate, normal rhythm, normal heart sounds. Absent: systolic murmur, diastolic murmur, rubs, gallop, clicks GI/Abdominal exam: Present: soft, normal bowel sounds. Absent: distended, tenderness, guarding, rebound, rigid Extremities exam: Present: normal inspection, full ROM, normal capillary refill. Absent: tenderness, pedal edema, joint swelling, calf tenderness Back exam: Present: normal inspection Neurological exam: Present: alert, oriented X3, CN II-XII intact Psychiatric exam: Present: normal affect, normal mood Skin exam: Present: warm, dry, intact, normal color. Absent: rash Course Vital Signs 07/25/22 05:32 Temperature 97.8 F Pulse Rate 76 Respiratory 16 Rate Blood Pressure 126/85 O2 Sat by Pulse 97 Oximetry - Reevaluation(s) Reevaluation #1: 07/25/22 05:57 Medical record is reviewed Reevaluation #2: 07/25/22 05:57 Patient informed results and questions are answered Medical Decision Making - Medical Decision Making 56 male who does have likely iatrogenic or traumatic right traumatic membrane rupture. Patient placed on right eardrops and can be discharged home Disposition Clinical Impression: Eardrum rupture, right Disposition: HOME SELF-CARE Condition: Good Instructions (If sedation given, give patient instructions): Ruptured Eardrum (ED) Is patient prescribed a controlled substance at d/c from ED?: No Referrals: None,Stated [Primary Care Provider] - 1-2 days Time of Disposition: 06:00
[2022-07-25] MEDS ORDERED: OFLOXACIN 0.3% OPHTH DROPS 5 ML BOTTLE RIGHT EAR ONE (06:00)
== END 2022-07-25 06:12 | disposition home or self-care (01) ==
LOC: EC 05:30
DX: S09.21XA Traumatic rupture of right ear drum, initial encounter (principal); E11.9 Type 2 diabetes mellitus without complications; F17.200 Nicotine dependence, unspecified, uncomplicated; Z91.010 Allergy to peanuts; Z79.84 Long term (current) use of oral hypoglycemic drugs; W22.8XXA Striking against or struck by other objects, initial encounter; Y92.89 Other specified places as the place of occurrence of the external cause
CPT/HCPCS: 99282

== ENCOUNTER → 2022-09-02 | Outpatient (CLI) | payer OTHER ==
[2022-09-02 16:02] LABS: Basophils # (A) 0.08 X 10*3/uL (0.00-0.10); Eosinophils % (A) 2.5 %; HCT 40.2 % (39.6-50.0); HGB 13.4 g/dL (13.0-17.0); Immature Grans, Automated 0.3 %; Lymphocytes # (A) 3.31 X 10*3/uL (0.90-5.00); Lymphocytes % (A) 41.6 %; MCH 33.8 pg (27.0-32.0); MCHC 33.3 g/dL (32.0-37.0); MCV 101.3 fL (80.0-97.0); Mean Platelet Volume 10.1 fL (9.5-12.2); Monocytes % (A) 6.3 %; NRBC Per 100 WBC 0 /100 WBCS (0.0-0.0); Neutrophils # (A) 3.84 X 10*3/uL (1.80-7.70); Neutrophils % (A) 48.3 %; Platelet Count 245 X 10*3/uL (140-440); RBC 3.97 X 10*6/uL (4.40-5.60); RDW 12.3 % (11.5-14.5); WBC 7.95 X 10*3/uL (4.50-10.00)
[2022-09-02 17:40] LABS: African American GFR (CKD) 111.3 (60.0-200.0); Albumin 4.4 g/dL (3.8-4.9); Albumin/Globulin Ratio 1.66 (1.60-3.17); Anion Gap 9.9 mmol/L (10.00-18.00); BUN/Creat Ratio 13.05 Ratio (12.00-20.00); Blood Urea Nitrogen 11.3 mg/dL (9.0-27.0); Calcium 9.3 mg/dL (8.7-10.3); Carbon Dioxide 27.3 mmol/L (20.0-27.5); Globulin 2.6 g/dL (1.6-3.3); Potassium 4.6 mmol/L (3.5-5.5); Total Bilirubin 0.2 mg/dL (0.30-1.20)
[2022-09-03 10:10] LABS: HIV-1 RNA Not detected (Not detected); HIV-1 RNA, Quant <20 Copies/mL (<20); LOG HIV Copies/mL <1.30 (<1.30)
[2022-09-03 13:53] LABS: T4/T8 Ratio (CD4:CD8) 0.4 (1.0-3.7)
== END | disposition home or self-care (01) ==
LOC: LABWHC1 09:05
PROVIDERS: ATTEND Internal Medicine Infectious Disease
DX: B20 Human immunodeficiency virus [HIV] disease (principal)
CPT/HCPCS: 36415; 80053; 85025; 86360; 87536

== ENCOUNTER → 2023-03-03 | Outpatient (CLI) | payer OTHER ==
[2023-03-03 15:38] LABS: Basophils # (A) 0.07 X 10*3/uL (0.00-0.10); Basophils % (A) 0.7 %; Eosinophils # (A) 0.17 X 10*3/uL (0.04-0.35); Eosinophils % (A) 1.7 %; HCT 42.6 % (39.6-50.0); Lymphocytes # (A) 2.64 X 10*3/uL (0.90-5.00); Lymphocytes % (A) 26.2 %; MCH 34.4 pg (27.0-32.0); MCHC 32.9 d/dL (32.0-37.0); MCV 104.7 FL (80.0-97.0); Mean Platelet Volume 10.4 FL (9.5-12.2); Monocytes # (A) 0.53 X 10*3/uL (0.20-1.00); Monocytes % (A) 5.3 %; NRBC Per 100 WBC 0 X 10*3/uL (0.00-0.01); Neutrophils # (A) 6.65 X 10*3/uL (1.80-7.70); Neutrophils % (A) 65.8 %; Platelet Count 299 X 10*3/uL (140-440); RBC 4.07 X 10*6/uL (4.40-5.60); RDW 12.7 % (11.5-14.5); WBC 10.09 X 10*3/uL (4.50-10.00)
[2023-03-03 16:06] LABS: BUN/Creat Ratio 16.62 Ratio (12.00-20.00); Blood Urea Nitrogen 13.3 mg/dL (9.0-27.0); Chloride 102 mmol/L (96-109); Glucose 112 mg/dL (70-110); Potassium 5.4 mmol/L (3.5-5.5); Sodium 141 mmol/L (135-145)
[2023-03-03 16:07] LABS: ALT 19 U/L (10-49); AST 19 U/L (14-35); Albumin 4.5 d/dL (3.8-4.9); Albumin/Globulin Ratio 1.67 Ratio (1.60-3.17); Alkaline Phosphatase 95 U/L (41-126); Calcium 9.9 mg/dL (8.7-10.3); Carbon Dioxide 26.9 mmol/L (21.6-31.8); Globulin 2.7 d/dL (1.6-3.3); Total Bilirubin 0.6 mg/dL (0.3-1.2); Total Protein 7.2 d/dL (6.2-8.2)
[2023-03-04 12:09] LABS: T4/T8 Ratio (CD4:CD8) 0.5 (1.0-3.7)
[2023-03-04 13:26] LABS: HIV-1 RNA DETECTED (Not detected); HIV-1 RNA, Quant 23 Copies/mL (<20); LOG HIV Copies/mL 1.36 (<1.30)
== END | disposition home or self-care (01) ==
LOC: LABWHC1 07:59
PROVIDERS: ATTEND Internal Medicine Infectious Disease
DX: B20 Human immunodeficiency virus [HIV] disease (principal)
CPT/HCPCS: 36415; 80053; 85025; 86360; 87536

== ENCOUNTER 2023-03-16 21:32 | Emergency (ER) | payer MEDICARE, OTHER ==
[2023-03-16 21:55] VITALS: TEMP 98.2
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
--- NOTE | 2023-03-16 22:43 | CT ---
EXAM: CT Head Without Intravenous Contrast CLINICAL HISTORY: ITS.REASON CT Reason: pain TECHNIQUE: Axial computed tomography images of the head/brain without intravenous contrast. CTDI is 45.2 mGy and DLP is 1008 mGy-cm. This CT exam was performed using one or more of the following dose reduction techniques: automated exposure control, adjustment of the mA and/or kV according to patient size, and/or use of iterative reconstruction technique. COMPARISON: No relevant prior studies available. FINDINGS: No acute intracranial hemorrhage. No midline shift or mass effect. The territorial bhatia-white matter differentiation is maintained throughout. The ventricles and sulci are commensurate with age. The visualized orbits appear grossly unremarkable. The calvarium is intact. The visualized paranasal sinuses and mastoid air cells are grossly clear. IMPRESSION: No acute intracranial hemorrhage, midline shift, or mass effect. EXAM: CT Cervical Spine Without Intravenous Contrast CLINICAL HISTORY: ITS.REASON CT Reason: pain TECHNIQUE: Axial computed tomography images of the cervical spine without intravenous contrast. CTDI is 13 mGy and DLP is 358.2 mGy-cm. This CT exam was performed using one or more of the following dose reduction techniques: automated exposure control, adjustment of the mA and/or kV according to patient size, and/or use of iterative reconstruction technique. COMPARISON: No relevant prior studies available. FINDINGS: The vertebral body heights are maintained. The craniocervical junction is intact. The atlanto-dens interval is maintained. The dens is intact. There is no spondylolisthesis. Multilevel cervical spondylosis and degenerative disc disease. The unenhanced neck soft tissues are grossly unremarkable. The visualized lung apices are grossly clear. IMPRESSION: No acute fracture or subluxation of the cervical spine.
--- NOTE | 2023-03-16 22:45 | XR ---
EXAM: XR Right Elbow Complete, 3 or More Views CLINICAL HISTORY: ITS.REASON XR Reason: pain TECHNIQUE: Frontal, lateral and oblique views of the right elbow. COMPARISON: No relevant prior studies available. FINDINGS: Bones/joints: Mild impaction of the radial head/neck junction. No acute fracture. No dislocation. Soft tissues: Unremarkable. IMPRESSION: Mild impaction of the radial head/neck junction.
--- NOTE | 2023-03-16 22:46 | XR ---
EXAM: XR Left Hand Complete, 3 or More Views CLINICAL HISTORY: ITS.REASON XR Reason: pain TECHNIQUE: Frontal, lateral and oblique views of the left hand. COMPARISON: No relevant prior studies available. FINDINGS: Bones/joints: Mildly displaced fracture of the fifth metacarpal proximal metaphysis. No dislocation. Soft tissues: Unremarkable. No radiopaque foreign body. IMPRESSION: Mildly displaced fracture of the fifth metacarpal proximal metaphysis.
[2023-03-16] MEDS ORDERED: ACET/COD 300 MG/30 MG STARTER PACK 6 TAB BTL PO STA (23:58)
[2023-03-17 01:26] VITALS: BP 134/81; PULSE 60; RESP 16
== END 2023-03-17 01:25 | disposition home or self-care (01) ==
LOC: EC 21:32
DX: S62.307A Unspecified fracture of fifth metacarpal bone, left hand, initial encounter for closed fracture (principal); S52.121A Displaced fracture of head of right radius, initial encounter for closed fracture; E11.9 Type 2 diabetes mellitus without complications; F17.200 Nicotine dependence, unspecified, uncomplicated; Z91.010 Allergy to peanuts; Z79.84 Long term (current) use of oral hypoglycemic drugs; V19.9XXA Pedal cyclist (driver) (passenger) injured in unspecified traffic accident, initial encounter; Y93.55 Activity, bike riding
CPT/HCPCS: 29125; 70450; 72125; 99284

== ENCOUNTER 2024-02-17 16:19 | Emergency (ER) | payer MEDICARE ==
[2024-02-17 17:00] LABS: Appearance,Urine Turbid (Clear); Bacteria,Urine Occasional /hpf; Bilirubin,Urine Negative (Negative); Blood,Urine Large (Negative); Color,Urine Yellow; Glucose,Urine (UA) Negative (Negative); Ketones,Urine Negative (Negative); Leukocyte Esterase,Urine Large (Negative); Mucus,Urine Few /hpf; Nitrite,Urine Positive (Negative); Protein,Urine 2+ (Negative); RBC,Urine >182 /hpf (0-5); Specific Gravity,Urine 1.018 (1.001-1.035); Squamous Epithelial Cell,Urine 1 /hpf (0-4); Urobilinogen,Urine <2.0 mg/dL (<2.0); WBC,Urine >182 /hpf (0-5)
[2024-02-17] MEDS: SODIUM CHLORIDE 0.9% 1,000 ML IV ONE (17:17)
[2024-02-17 17:33] LABS: Basophils # (A) 0.1 k/uL (0-0.2); Basophils % (A) 1 %; Eosinophils # (A) 0.1 k/uL (0-0.7); Eosinophils % (A) 1 %; HCT 42.3 % (39.0-53.0); HGB 13.9 gm/dL (13.0-17.5); Lymphocytes # (A) 2.7 k/uL (1.0-4.8); Lymphocytes % (A) 17 %; MCH 33.4 pg (25.0-35.0); MCHC 32.9 g/dL (31.0-37.0); MCV 101.6 fL (80.0-100.0); Macrocytosis Slight; Mean Platelet Volume 7.7; Monocytes % (A) 6 %; Neutrophils # (A) 11.9 k/uL (1.3-7.7); Neutrophils % (A) 74 %; Platelet Count 227 k/uL (150-450); RBC 4.17 m/uL (4.30-5.90); RDW 12.9 % (11.5-15.5); WBC 16.1 k/uL (3.8-10.6)
[2024-02-17 17:41] LABS: ALT 16 U/L (4-49); AST 22 U/L (17-59); African American GFR (CKD) >90 (>60 ml/min/1.73 sqM); Albumin 4.4 g/dL (3.5-5.0); Alkaline Phosphatase 87 U/L (38-126); Anion Gap 5 mmol/L; Blood Urea Nitrogen 11 mg/dL (9-20); Calcium 9.1 mg/dL (8.4-10.2); Carbon Dioxide 30 mmol/L (22-30); Chloride 102 mmol/L (98-107); Glucose 97 mg/dL (74-99); Non-African American GFR(CKD) >90 (>60 ml/min/1.73 sqM); Potassium 4.3 mmol/L (3.5-5.1); Sodium 137 mmol/L (137-145); Total Bilirubin 0.8 mg/dL (0.2-1.3); Total Protein 7.6 g/dL (6.3-8.2)
--- NOTE | 2024-02-17 17:41 | ED ---
General Adult HPI - General Chief complaint: Urogenital Stated complaint: Urogenital Time Seen by Provider: 02/17/24 16:35 Source: patient, RN notes reviewed Mode of arrival: ambulatory Limitations: no limitations - History of Present Illness Initial comments: 58-year-old male presents to the emergency department for evaluation of dysuria and left flank pain. He states that symptoms started yesterday. He notes that yesterday he noticed having frequent urination going about every 5 to 10 minutes. He states that he has had small amount of urine output when he used the bathroom. Patient admits to pain with urination. He also admits to left flank pain. He denies history of kidney stones, fever, chills. Denies nausea, vomiting. Denies possibility of STDs. - Related Data Home Medications Medication Instructions Recorded Confirmed ALPRAZolam [Xanax] 0.5 mg PO BID 08/12/18 08/12/18 Atorvastatin [Lipitor] 40 mg PO DAILY 08/12/18 08/12/18 Bictegrav/Emtricit/Tenofov Ala 1 tab PO HS 08/12/18 08/12/18 [Biktarvy 50-200-25 mg Tablet] Dicyclomine [Bentyl] 20 mg PO BID 08/12/18 08/12/18 gemfibroziL [Lopid] 600 mg PO BID 08/12/18 08/12/18 metFORMIN HCL 500 mg PO BID 08/12/18 08/12/18 Previous Rx's Medication Instructions Recorded Acetaminophen [Tylenol] 500 mg PO Q4-6H PRN #24 tab 12/27/21 Ibuprofen [Motrin] 600 mg PO Q8HR PRN #30 tab 12/27/21 clindamycin HCL [Cleocin] 300 mg PO Q6H #40 cap 12/27/21 Ciprofloxacin HCl [Cipro] 500 mg PO BID 10 Days #20 tab 02/17/24 Phenazopyridine HCl [Pyridium] 100 mg PO TID #6 tab 02/17/24 Allergies Allergy/AdvReac Type Severity Reaction Status Date / Time peanut Allergy Nausea & Verified 02/17/24 16:32 Vomiting Review of Systems ROS Statement: Those systems with pertinent positive or pertinent negative responses have been documented in the HPI. ROS Other: All systems not noted in ROS Statement are negative. Past Medical History Past Medical History: Diabetes Mellitus Additional Past Medical History / Comment(s): HIV+, heat sensitivity History of Any Multi-Drug Resistant Organisms: None Reported Past Surgical History: No Surgical Hx Reported Past Psychological History: No Psychological Hx Reported Smoking Status: Current every day smoker Past Alcohol Use History: None Reported Past Drug Use History: None Reported General Exam Limitations: no limitations General appearance: alert, in no apparent distress Head exam: Present: atraumatic, normocephalic, normal inspection Eye exam: Present: normal appearance, PERRL, EOMI. Absent: scleral icterus, conjunctival injection, periorbital swelling Respiratory exam: Present: normal lung sounds bilaterally. Absent: respiratory distress, wheezes, rales, rhonchi, stridor Cardiovascular Exam: Present: regular rate, normal rhythm, normal heart sounds. Absent: systolic murmur, diastolic murmur, rubs, gallop, clicks GI/Abdominal exam: Present: soft, normal bowel sounds. Absent: distended, tenderness, guarding, rebound, rigid Extremities exam: Present: normal inspection, full ROM, normal capillary refill. Absent: tenderness, pedal edema, joint swelling, calf tenderness Back exam: Present: full ROM, CVA tenderness (L) Neurological exam: Present: alert, oriented X3, CN II-XII intact Psychiatric exam: Present: normal affect, normal mood Skin exam: Present: warm, dry, intact, normal color. Absent: rash Course Vital Signs 02/17/24 02/17/24 02/17/24 16:27 18:56 19:55 Temperature 98.2 F 100.6 F H 99.4 F Pulse Rate 101 H 85 89 Respiratory 18 18 16 Rate Blood Pressure 123/81 123/74 139/93 O2 Sat by Pulse 97 98 99 Oximetry Medical Decision Making - Medical Decision Making Was pt. sent in by a medical professional or institution (, PA, WORKING MANAGER, urgent care, hospital, or fpc...) When possible be specific @ -No Did you speak to anyone other than the patient for history (EMS, parent, family, police, friend...)? What history was obtained from this source @ -No Did you review nursing and triage notes (agree or disagree)? Why? @ -I reviewed and agree with nursing and triage notes Were old charts reviewed (outside hosp., previous admission, EMS record, old EKG, old radiological studies, urgent care reports/EKG's, fpc records)? Report findings @ -No old charts were reviewed Differential Diagnosis (chest pain, altered mental status, abdominal pain women, abdominal pain men, vaginal bleeding, weakness, fever, dyspnea, syncope, headache, dizziness, GI bleed, back pain, seizure, CVA, palpatations, mental health, musculoskeletal)? @ -n differential Back Pain: Strain, zoster, cauda equina syndrome, epidural abscess, vertebral osteomyelitis, discitis, fracture, subluxation, disc herniation, DJD, spinal stenosis, dissection, AAA, pancreatitis, peptic ulcer disease, pyelonephritis, kidney stone, this is not meant to be an all-inclusive list. EKG interpreted by me (3pts min.). @ -None X-rays interpreted by me (1pt min.). @ -None done CT interpreted by me (1pt min.). @ -CT abdomen pelvis shows a thickened bladder wall, no evidence of nephro or u rolithiasis U/S interpreted by me (1pt. min.). @ -None done What testing was considered but not performed or refused? (CT, X-rays, U/S, labs)? Why? @ -None What meds were considered but not given or refused? Why? @ -None Did you discuss the management of the patient with other professionals (prof black i.eOumou Sinclair, PA, WORKING MANAGER, lab, RT, psych nurse, social insurance administrator, exhaust machine operator, teacher, forest fire officer, field nurse case manager)? Give summary @ -No Was smoking cessation discussed for >3mins.? @ -No Was critical care preformed (if so, how long)? @ -No Were there social determinants of health that impacted care today? How? (Homelessness, low income, unemployed, alcoholism, drug addiction, transportation, low edu. Level, literacy, decrease access to med. care, long-term, rehab)? @ -No Was there de-escalation of care discussed even if they declined (Discuss DNR or withdrawal of care, Hospice)? DNR status @ -No What co-morbidities impacted this encounter? (DM, HTN, Smoking, COPD, CAD, Cancer, CVA, ARF, Chemo, Hep., AIDS, mental health diagnosis, sleep apnea, morbid obesity)? @ -None Was patient admitted / discharged? Hospital course, mention meds given and route, prescriptions, significant lab abnormalities, going to OR and other pertinent info. @ -Discharge. Patient presented to the emergency department for evaluation of urinary symptoms with left flank pain. Symptoms started yesterday. UA was obt ained which showed positive nitrate, large leukocyte esterase, urine WBCs, WBC clumps. CBC significant for leukocytosis with a WBC of 16.1; CMP shows creatinine of 0.77, otherwise unremarkable. Lactic acid 1.6. Patient underwent CT abdomen and pelvis which showed a thickened bladder wall likely cystitis based on clinical presentation and UA results. Patient was given 1 g of Rocephin while in the emergency department. He was also provided 1 L normal saline while in the ED. Discussed admission versus initial outpatient treatment. Outpatient treatment preferred by patient at this time. Pre scription was sent to patient's pharmacy for antibiotics. 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 Discussed strict return precautions with the patient who expresses understanding and is in agreement with this plan. Patient stable at time of discharge. Case discussed with Dr. Arriaza. Undiagnosed new problem with uncertain prognosis? @ -No Drug Therapy requiring intensive monitoring for toxicity (Heparin, Nitro, Insulin, Cardizem)? @ -No Were any procedures done? @ -No Diagnosis/symptom? @ -Cystitis Acute, or Chronic, or Acute on Chronic? @ -d acute Uncomplicated (without systemic symptoms) or Complicated (systemic symptoms)? @ -Complicated Side effects of treatment? @ -No Exacerbation, Progression, or Severe Exacerbation? @ -No Poses a threat to life or bodily function? How? (Chest pain, USA, IA, pneumonia, PE, COPD, DKA, ARF, appy, cholecystitis, CVA, Diverticulitis, Homicidal, Suicidal, threat to staff... and all critical care pts) @ -No - Lab Data Result diagrams: 02/17/24 17:06 02/17/24 17:06 Lab Results 02/17/24 02/17/24 02/17/24 Range/Units 16:31 17:06 17:06 WBC 16.1 H (3.8-10.6) k/uL RBC 4.17 L (4.30-5.90) m/uL Hgb 13.9 (13.0-17.5) gm/dL Hct 42.3 (39.0-53.0) % MCV 101.6 H (80.0-100.0) fL MCH 33.4 (25.0-35.0) pg MCHC 32.9 (31.0-37.0) g/dL RDW 12.9 (11.5-15.5) % Plt Count 227 (150-450) k/uL MPV 7.7 Neutrophils % 74 % Lymphocytes % 17 % Monocytes % 6 % Eosinophils % 1 % Basophils % 1 % Neutrophils # 11.9 H (1.3-7.7) k/uL Lymphocytes # 2.7 (1.0-4.8) k/uL Monocytes # 1.0 (0-1.0) k/uL Eosinophils # 0.1 (0-0.7) k/uL Basophils # 0.1 (0-0.2) k/uL Macrocytosis Slight Sodium 137 (137-145) mmol/L Potassium 4.3 (3.5-5.1) mmol/L Chloride 102 (98-107) mmol/L Carbon Dioxide 30 (22-30) mmol/L Anion Gap 5 mmol/L BUN 11 (9-20) mg/dL Creatinine 0.77 (0.66-1.25) mg/dL Est GFR (CKD-EPI)AfAm >90 (>60 ml/min/1.73 sqM) Est GFR (CKD-EPI)NonAf >90 (>60 ml/min/1.73 sqM) Glucose 97 (74-99) mg/dL Plasma Lactic Acid Gaurang (0.7-2.0) mmol/L Calcium 9.1 (8.4-10.2) mg/dL Total Bilirubin 0.8 (0.2-1.3) mg/dL AST 22 (17-59) U/L ALT 16 (4-49) U/L Alkaline Phosphatase 87 (38-126) U/L Total Protein 7.6 (6.3-8.2) g/dL Albumin 4.4 (3.5-5.0) g/dL Urine Color Yellow Urine Appearance Turbid (Clear) Urine pH 6.0 (5.0-8.0) Ur Specific [place] 1.018 (1.001-1.035) Urine Protein 2+ H (Negative) Urine Glucose (UA) Negative (Negative) Urine Ketones Negative (Negative) Urine Blood Large H (Negative) Urine Nitrite Positive (Negative) Urine Bilirubin Negative (Negative) Urine Urobilinogen <2.0 (<2.0) mg/dL Ur Leukocyte Esterase Large H (Negative) Urine RBC >182 H (0-5) /hpf Urine WBC >182 H (0-5) /hpf Urine WBC Clumps Many H (None) /hpf Ur Squamous Epith Cells 1 (0-4) /hpf Urine Bacteria Occasional H (None) /hpf Urine Mucus Few H (None) /hpf 02/17/24 Range/Units 17:06 WBC (3.8-10.6) k/uL RBC (4.30-5.90) m/uL Hgb (13.0-17.5) gm/dL Hct (39.0-53.0) % MCV (80.0-100.0) fL MCH (25.0-35.0) pg MCHC (31.0-37.0) g/dL RDW (11.5-15.5) % Plt Count (150-450) k/uL MPV Neutrophils % % Lymphocytes % % Monocytes % % Eosinophils % % Basophils % % Neutrophils # (1.3-7.7) k/uL Lymphocytes # (1.0-4.8) k/uL Monocytes # (0-1.0) k/uL Eosinophils # (0-0.7) k/uL Basophils # (0-0.2) k/uL Macrocytosis Sodium (137-145) mmol/L Potassium (3.5-5.1) mmol/L Chloride (98-107) mmol/L Carbon Dioxide (22-30) mmol/L Anion Gap mmol/L BUN (9-20) mg/dL Creatinine (0.66-1.25) mg/dL Est GFR (CKD-EPI)AfAm (>60 ml/min/1.73 sqM) Est GFR (CKD-EPI)NonAf (>60 ml/min/1.73 sqM) Glucose (74-99) mg/dL Plasma Lactic Acid Gaurang 1.6 (0.7-2.0) mmol/L Calcium (8.4-10.2) mg/dL Total Bilirubin (0.2-1.3) mg/dL AST (17-59) U/L ALT (4-49) U/L Alkaline Phosphatase (38-126) U/L Total Protein (6.3-8.2) g/dL Albumin (3.5-5.0) g/dL Urine Color Urine Appearance (Clear) Urine pH (5.0-8.0) Ur Specific [place] (1.001-1.035) Urine Protein (Negative) Urine Glucose (UA) (Negative) Urine Ketones (Negative) Urine Blood (Negative) Urine Nitrite (Negative) Urine Bilirubin (Negative) Urine Urobilinogen (<2.0) mg/dL Ur Leukocyte Esterase (Negative) Urine RBC (0-5) /hpf Urine WBC (0-5) /hpf Urine WBC Clumps (None) /hpf Ur Squamous Epith Cells (0-4) /hpf Urine Bacteria (None) /hpf Urine Mucus (None) /hpf Disposition Clinical Impression: UTI (urinary tract infection) Disposition: HOME SELF-CARE Condition: Stable Instructions (If sedation given, give patient instructions): Urinary Tract Infection in Men (ED) 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 Please follow up with your primary care provider and urology. Return to the emergency department for new or worsening symptoms. Prescriptions: Ciprofloxacin HCl [Cipro] 500 mg PO BID 10 Days #20 tab Phenazopyridine HCl [Pyridium] 100 mg PO TID #6 tab Is patient prescribed a controlled substance at d/c from ED?: No Referrals: Wander Cisneros MD [Primary Care Provider] - 1-2 days Vishal Franklin MD [STAFF PHYSICIAN] - 1-2 days
[2024-02-17] MEDS: KETOROLAC 15 MG/ML 1 ML VIAL IVP STA (17:42)
--- NOTE | 2024-02-17 17:58 | CT ---
EXAMINATION TYPE: CT abdomen pelvis wo con DATE OF EXAM: 02/17/2024 COMPARISON: None INDICATION: left flank pain DLP: 566.1 mGycm, Automated exposure control for dose reduction was used. CONTRAST: 0 mL of Isovue 300. Study performed without Oral Contrast TECHNIQUE: Axial images were obtained from above the diaphragm to the pubic rami in the axial plane a t 5 mm thick sections. Reconstructed images are reviewed on the computer in the coronal plane. FINDINGS: Limited CT sections are obtained the lung bases. The lung bases are clear. CT ABDOMEN: Liver: Normal Spleen: Normal Pancreas: Normal Adrenal glands: The adrenal glands are normal. Gallbladder: Gallstones present. Kidneys: No masses are evident. No hydronephrosis is present. No cysts are present. No renal stone s are identified. Aorta: Vascular calcification is within the aorta. Inferior vena cava: Normal. CT PELVIS: Loops of bowel within the abdomen and pelvis are normal. This study is without oral contrast limi ting bowel evaluation. Appendix: Normal as visualized. Urinary bladder: Urinary bladder wall is thickened. Genitourinary structures: Prostate is prominent. Osseous structures: No suspicious lytic or sclerotic lesions evident. IMPRESSION: 1. Cholelithiasis. 2. Thickened urinary bladder wall. Neurogenic bladder, or cystitis should be considered. Underlying n eoplasm is not excluded. Follow-up is recommended.
[2024-02-17] MEDS: cefTRIAXone IN SWFI 1,000 MG/10 ML SYRINGE IVP STA (19:34)
[2024-02-17] MEDS: ACETAMINOPHEN TAB 500 MG TAB PO STA (19:51)
[2024-02-17 20:08] VITALS: BP 139/93; PULSE 89; RESP 16; TEMP 99.4
== END 2024-02-17 19:55 | disposition home or self-care (01) ==
LOC: EC 16:19
DX: N39.0 Urinary tract infection, site not specified (principal); K80.20 Calculus of gallbladder without cholecystitis without obstruction; F17.200 Nicotine dependence, unspecified, uncomplicated; Z91.010 Allergy to peanuts
CPT/HCPCS: 36415; 80053; 83605; 85025; 81001; 87086; 87077; 87186; 74176; 99284; 96374; 96375; 96361 ×2; J0696; J1885

== ENCOUNTER 2024-11-20 10:34 | Day surgery (SDC) | payer MEDICARE ==
[2024-11-20] MEDS: IV FLUID CONTINUATION 1,000 ML IV ONE (10:49)
[2024-11-20 10:57] VITALS: TEMP 98
[2024-11-20] MEDS: LACTATED RINGERS 1,000 ML IV SCH (11:04)
[2024-11-20 11:05] LABS: Glucose,Whole Blood 119 mg/dL (70-110)
[2024-11-20] MEDS ORDERED: PROPOFOL 10 MG/ML 20 ML VIAL IV ONE (11:55)
[2024-11-20] MEDS: LACTATED RINGERS 1,000 ML IV ONE (12:05)
--- NOTE | 2024-11-20 12:12 | P.PCN ---
Date of Procedure: 11/20/24 Procedure(s) Performed: BRIEF HISTORY: Patient is a pleasant 61-year-old white male scheduled for an elective colonoscopy as a part of screening for colon cancer. His brother was diagnosed with colon cancer at age 50. PROCEDURE PERFORMED: Colonoscopy with snare polypectomy. PREOPERATIVE DIAGNOSIS: Screening for colon cancer and family history of colon cancer. IV sedation per Anesthesia. PROCEDURE: After informed consent was obtained, the patient, was brought into the endoscopy unit. IV sedation was administered by Anesthesia under continuous monitoring. Digital rectal examination was normal. Initially the Olympus CF-160 flexible video colonoscope was then inserted in the rectum, gradually advanced into the cecum without any difficulty. Careful examination was performed as the scope was gradually being withdrawn. Ileocecal valve and the appendiceal orifice were visualized and appeared normal. Prep was fair. Mucosa of the cecum, ascending colon, transverse colon, descending colon, sigmoid colon, and rectum appeared normal. Retroflexion was performed in the rectum and no lesions were seen. The patient tolerated the procedure well. IMPRESSION: 6 mm hepatic flexure polyp status post cold snare polypectomy Scattered sigmoid diverticulosis RECOMMENDATIONS: Findings of this examination were discussed with the patient as well as his family. He was advised to follow-up with the biopsy results. Recommended repeat colonoscopy in 5 years because of the family history of colon cancer
[2024-11-20 12:33] VITALS: BP 115/74; PULSE 78; RESP 16
== END 2024-11-20 12:59 | disposition home or self-care (01) ==
LOC: ORWHC2ENDO 10:34
PROVIDERS: ATTEND Internal Medicine Gastroenterology
DX: Z12.11 Encounter for screening for malignant neoplasm of colon (principal); D12.3 Benign neoplasm of transverse colon; K57.30 Diverticulosis of large intestine without perforation or abscess without bleeding; K21.9 Gastro-esophageal reflux disease without esophagitis; E78.5 Hyperlipidemia, unspecified; E11.9 Type 2 diabetes mellitus without complications; I10 Essential (primary) hypertension; F17.210 Nicotine dependence, cigarettes, uncomplicated; Z80.6 Family history of leukemia; Z80.0 Family history of malignant neoplasm of digestive organs; Z79.02 Long term (current) use of antithrombotics/antiplatelets; Z79.84 Long term (current) use of oral hypoglycemic drugs; Z79.899 Other long term (current) drug therapy
CPT/HCPCS: 88305; 45385; J2704

== ENCOUNTER → 2025-02-26 | Outpatient (CLI) | payer MEDICARE ==
--- NOTE | 2025-02-26 07:44 | CTL ---
EXAMINATION TYPE: CT Low Dose Lung DATE OF EXAM: 02/26/2025 7:33 AM COMPARISON: 11/01/2021. CLINICAL INDICATION: Male, 59 years old with history of Z87.891 HX NICOTINE DEPEND; Nicotine dependen ce., history of tobacco use. TECHNIQUE: Multiple axial non-contrast scans were obtained from approximately the lung apices through the upper abdomen. Coronal and sagittal reformatted images were obtained. Low dose technique was uti lized. MIP were created on a separate workstation and submitted for review. CT DLP: 89.7 mGycm, Automated exposure control for dose reduction was used. CT Contrast: Contrast used: None Oral contrast used: None FINDINGS: Lack of intravenous contrast and low dose technique limits the evaluation of the vascular and soft ti ssue structures. LUNGS: No evidence of pulmonary fibrosis. No evidence of focal consolidation, pneumothorax or pleural effusion. Centrilobular emphysema changes. Nodules: RUL: None. RML: None. RLL: None. ANETA: None. LLL: None. AIRWAY: Patent and unremarkable. HEART: Size within normal limits. No significant coronary artery calcifications. MEDIASTINUM: No gross evidence of adenopathy. VASCULATURE: No aortic aneurysm. MUSCULOSKELETAL: No acute osseous abnormalities SOFT TISSUES/LYMPH NODES: Unremarkable. LOWER NECK: No significant findings. UPPER ABDOMEN: Gallstone in the gallbladder neck. IMPRESSION: 1. No clinically significant pulmonary nodules. 2. Mild emphysema. 3. Cholelithiasis. CT LUNG RAD AND CT CHEST RECOMMENDATION: Lung-Rad 1 Negative: Continue annual screening with LDCT in 12 months. S Modifier (other clinically significant findings): None Recommend smoking cessation (if current smoker), or continuation of smoking cessation (if prior smoke r). Annual screening for lung cancer with low-dose computed tomography is recommended in adults ages 55 to 77 years who have a 30 pack-year smoking history and currently smoke or have quit within the pa st 15 years. Screening should be discontinued once a person has not smoked for 15 years or develops a health problem that substantially limits life expectancy or the ability or willingness to have curat beto lung surgery. Lung rads 2021 [email or web address] [facility], , 02/26/2025 7:42 AM
== END | disposition home or self-care (01) ==
LOC: RADCTMAIN 06:58
DX: Z12.2 Encounter for screening for malignant neoplasm of respiratory organs (principal); J43.2 Centrilobular emphysema; K80.20 Calculus of gallbladder without cholecystitis without obstruction; Z87.891 Personal history of nicotine dependence
CPT/HCPCS: 71271